=== PATIENT | male | born 1955 | race Two or more races ===

== ENCOUNTER 2018-02-14 10:52 | Inpatient (IN) | payer SELFPAY ==
[~2018-02-14] VITALS: Ht 170.2 cm; Wt 80.3 kg
--- NOTE | 2018-02-14 11:00 | NUR ---
DISTENDED ABDOMEN, SOB, CONFUSION, WEAKNESS, HEADACHE SINCE LAST NIGHT. NAD NOTED. PT AAO X4, RR EVEN AND UNLABORED. VSS. PENDING MD VALVERDE.
[2018-02-14 11:51] LABS: CALCIUM, SERUM 8.9 mg/dL (8.5-10.1); CARBON DIOXIDE 20 mmol/L (21-32); CHLORIDE 101 mmol/L (98-107); CREATININE 1.1 mg/dL (0.6-1.3); EOSINOPHILS % (AUTO) 0.3 % (0.0-6.0); GLUCOSE 228 mg/dL (74-106); HEMATOCRIT 31 % (39-51); HEMOGLOBIN 9.8 g/dL (13.5-17.5); LYMPHOCYTES # (AUTO) 0.7 /CMM (0.8-4.8); LYMPHOCYTES % (AUTO) 15.4 % (20.0-44.0); MEAN CORPUSCULAR HEMOGLOBIN 24 PG (26.0-33.0); MEAN CORPUSCULAR HGB CONC 32 g/dl (31.0-36.0); MEAN CORPUSCULAR VOLUME 76 fL (80-96); MONOCYTES # (AUTO) 0.4 /CMM (0.1-1.30); NEUTROPHILS # (AUTO) 3.5 /CMM (1.8-8.9); NEUTROPHILS % (AUTO) 75.3 % (43.0-81.0); PLATELET COUNT (AUTO) 79 /CMM (150-450); RDW COEFFICIENT OF VARIATION 19.5 (11.5-15.0); RED BLOOD CELL COUNT(AUTO) 4.06 MIL/uL (4.5-6.0); SODIUM SERUM 134 mmol/L (136-145); UREA NITROGEN, BLOOD 19 mg/dL (7-18); WHITE BLOOD COUNT (AUTO) 4.6 K/uL (4.3-11.0)
[2018-02-14 11:55] LABS: INR 1.28 (0.85-1.15)
[2018-02-14 11:57] LABS: ALANINE AMINOTRANSFERASE 38 U/L (12-78); ALBUMIN 3.4 g/dL (3.4-5.0); ALKALINE PHOSPHATASE 113 U/L (46-116); ASPARTATE AMINOTRANSFERASE 32 U/L (15-37); BILIRUBIN,DIRECT 0.5 mg/dL (0.0-0.2); BILIRUBIN,TOTAL 1.7 mg/dL (0.2-1.0); TOTAL PROTEIN, SERUM 8.6 g/dL (6.4-8.2)
[2018-02-14 12:05] LABS: APPEARANCE,URINE Slightly Cloudy (CLEAR); BILIRUBIN,URINE SMALL (NEGATIVE); BLOOD, URINE Negative Ery/uL (NEGATIVE); COLOR,URINE Yellow (YELLOW); KETONES,URINE Negative (NEGATIVE); LEUKOCYTE ESTERASE ,URINE Moderate (NEGATIVE); NITRITE, URINE Negative (NEGATIVE); PROTEIN,URINE Trace mg/dl (NEGATIVE); UGLUCOSE Negative (NEGATIVE)
[2018-02-14 12:10] LABS: BACTERIA,URINE Many /HPF (None Seen); RBC,URINE 0-2 /HPF (0-2); SQUAMOUS EPITHELIAL CELL,UR Moderate /HPF (None Seen)
[2018-02-14 12:12] LABS: LYMPHOCYTES % (MANUAL) 12 % (16-48); MONOCYTES % (MANUAL) 3 % (0-11.0); NEUTROPHILS % (MANUAL) 85 (42-76)
[2018-02-14] MEDS ORDERED: CEFTRIAXONE 1GM BAG (ER ONLY) 50 ML IV ONE ×2 (12:30→12:41)
[2018-02-14] MEDS ORDERED: AZITHROMYCIN 500 MG in IV D5W 250 ML IV ONE (12:30)
[2018-02-14] MEDS ORDERED: VANCOMYCIN 1 GM in IV D5W 250 ML IV ONE (12:30)
--- NOTE | 2018-02-14 12:32 | NUR ---
pt signed consent for paracentesis
[2018-02-14] MEDS ORDERED: LIDOCAINE 1%-EPI 1:100,000 20 ML VIAL ONE (12:36)
--- NOTE | 2018-02-14 12:55 | NUR ---
dr walls at bedside for paracentesis
[2018-02-14] MEDS ORDERED: METF850T2 PO (13:32)
[2018-02-14] MEDS ORDERED: NIFE10CA2 PO (13:32)
[2018-02-14] MEDS ORDERED: VITA1TAB56 PO (13:32)
[2018-02-14] MEDS ORDERED: FURO-144 PO (13:32)
[2018-02-14] MEDS ORDERED: [UNRECOGNIZED DRUG - CODE] PO (13:32)
[2018-02-14] MEDS ORDERED: INSU100V7 SQ (13:32)
[2018-02-14] MEDS ORDERED: CHLO50TA PO (13:32)
--- NOTE | 2018-02-14 13:49 | NUR ---
GOING TO ROOM 110 PER HOUSE SUP
--- NOTE | 2018-02-14 13:54 | NUR ---
REPORT GIVEN TO BERRY DODGE FOR ANGELA
[2018-02-14 14:30] VITALS: BP 137/76
[2018-02-14] MEDS ORDERED: ACETAMINOPHEN 325 MG TABLET PO PRN (14:30)
[2018-02-14] MEDS ORDERED: MAG HYDROX/AL HYDROX/SIMETH 30 ML UDC PO PRN (14:30)
[2018-02-14] MEDS ORDERED: MAGNESIUM HYDROXIDE 30 ML UDC PO PRN (14:30)
[2018-02-14] MEDS ORDERED: Z GUARD REMEDY 2 OZ OINT TP PRN (14:30)
[2018-02-14] MEDS ORDERED: ZOLPIDEM TARTRATE 5 MG TABLET PO PRN (14:30)
[2018-02-14] MEDS ORDERED: ONDANSETRON HCL/PF 4 MG/2 ML VIAL IVP PRN (14:30)
[2018-02-14] MEDS ORDERED: HYDROCODONE/APAP 5/325MG 1 EACH TABLET PO PRN (14:30)
[2018-02-14 16:00] VITALS: BP 126/68
[2018-02-14] MEDS ORDERED: DEXTROSE 50%-WATER 50 ML DISP.SYRIN IV PRN (19:00)
--- NOTE | 2018-02-14 19:38 | NUR ---
MS RN OPENING NOTE RECEIVE PATIENT AWAKE IN BED, A/O X3, STABLE NO FACIAL GRIMACING NOTED FOR PAIN. NO SOB OR DISTRESS NOTED, CALL LIGHT WITHIN REACH. SAFETY MEASURES IMPLEMENTED. WILL CONTINUE TO MONITOR THROUGHOUT SHIFT.
[2018-02-14 20:00] VITALS: BP 122/66
[2018-02-14] MEDS: INSULIN GLARGINE, 100 UNIT/ML CARTRIDGE SQ SCH (21:51)
[2018-02-14] MEDS: BLOOD SUGAR DIAGNOSTIC 1 EACH STRIP IN SCH (21:53)
[2018-02-14] MEDS: INSULIN REGULAR, HUMAN 100 UNIT/ML 3 ML VIAL SQ PRN (21:55)
[2018-02-15] VITALS: BP 144/89
[2018-02-15 04:00] VITALS: BP 140/75
--- NOTE | 2018-02-15 06:23 | NUR ---
MS RN CLOSING NOTES IN BED ASLEEP AND EASILY AWAKEN, NO COMPLAINTS OF PAIN, NO DISTRESS OR SOB AT THIS TIME. NO COMPLAINTS OF CHEST PAIN. NO S/S OF HYPO/HYPERGLYCEMIA. TOLERATING ROOM AIR 98%, AFEBRILE. AT BEDSIDE, NURSING CARE RENDERED. NEEDS ATTENDED, KEPT CLEAN AND DRY AND COMFORTABLE. SAFETY PRECAUTIONS IN PLACE, BED IN LOWEST LOCKED POSITION, X2 SIDE RAILS UP, AND CALL LIGHT WITHIN REACH. WILL ENDORSE TO DAY SHIFT NURSE FOR CONTINUITY OF CARE.
[2018-02-15 06:33] LABS: EOSINOPHILS % (AUTO) 1.7 % (0.0-6.0); HEMATOCRIT 27 % (39-51); HEMOGLOBIN 8.6 g/dL (13.5-17.5); LYMPHOCYTES # (AUTO) 0.4 /CMM (0.8-4.8); LYMPHOCYTES % (AUTO) 15.3 % (20.0-44.0); MEAN CORPUSCULAR HEMOGLOBIN 24 PG (26.0-33.0); MEAN CORPUSCULAR HGB CONC 32 g/dl (31.0-36.0); MEAN CORPUSCULAR VOLUME 76 fL (80-96); MONOCYTES # (AUTO) 0.3 /CMM (0.1-1.30); MONOCYTES % (AUTO) 11.8 % (2.0-12.0); NEUTROPHILS % (AUTO) 71.2 % (43.0-81.0); PLATELET COUNT (AUTO) 55 /CMM (150-450); RDW COEFFICIENT OF VARIATION 19.1 (11.5-15.0); RED BLOOD CELL COUNT(AUTO) 3.52 MIL/uL (4.5-6.0); WHITE BLOOD COUNT (AUTO) 2.8 K/uL (4.3-11.0)
[2018-02-15 07:04] LABS: CALCIUM, SERUM 8.6 mg/dL (8.5-10.1); MAGNESIUM 1.8 mg/dL (1.8-2.4); PHOSPHORUS 3.4 mg/dL (2.5-4.9); POTASSIUM 3.1 mmol/L (3.5-5.1)
--- NOTE | 2018-02-15 07:13 | NUR ---
MS RN NOTES: RECEIVED PT ON BED ASLEEP. NO ACUTE DISTRESS NOTED. NO COMPLAINTS OF PAIN OR DISCOMFORT. AT BEDSIDE DURING THIS TIME. BREATHING EVEN AND UNLABORED WITH NORMAL RESPIRATIONS. IV ON RAC G18 INTACT AND PATENT. KEPT CLEAN, DRY AND COMFORTABLE. SAFETY AND FALL PRECAUTIONS OBSERVED AND MAINTAINED. WILL CONTINUE TO MONITOR PT.
[2018-02-15 08:00] VITALS: BP 123/72
[2018-02-15] MEDS: BLOOD SUGAR DIAGNOSTIC 1 EACH STRIP IN SCH ×4 (08:16→21:55)
[2018-02-15] MEDS: FUROSEMIDE 40 MG/4 ML VIAL IV SCH (08:21)
[2018-02-15] MEDS: VITAMIN B COMP W-C 1 TAB TABLET PO SCH (08:22)
[2018-02-15] MEDS: METFORMIN 850 MG TABLET PO SCH (08:22)
[2018-02-15] MEDS: NIFEdipine (10MG) 10 MG CAPSULE PO SCH (08:22)
[2018-02-15] MEDS: HYDROCHLOROTHIAZIDE 25 MG TABLET PO SCH (08:22)
[2018-02-15] MEDS: INSULIN REGULAR, HUMAN 100 UNIT/ML 3 ML VIAL SQ PRN ×4 (08:23→21:56)
[2018-02-15 08:55] LABS: EOSINOPHILS % (MANUAL) 1 % (0-4); LYMPHOCYTES % (MANUAL) 14 % (16-48); MONOCYTES % (MANUAL) 4 % (0-11.0); NEUTROPHILS % (MANUAL) 81 (42-76)
[2018-02-15] MEDS ORDERED: POTASSIUM CHLORIDE 20 MEQ TAB.PRT.SR PO ONE (12:00)
[2018-02-15] MEDS: CEFTRIAXONE 1 G in IV NS 0.9% 50 ML IV SCH (13:47)
--- NOTE | 2018-02-15 18:58 | NUR ---
MS RN NOTES: PATIENT ON BED ALERT AND AWAKE. FAMILY AT BEDSIDE DURING THIS TIME. NO ACUTE DISTRESS NOTED. NO COMPLAINTS OF PAIN OR DISCOMFORT. BREATHING EVEN AND UNLABORED WITH NORMAL RESPIRATIONS. IV ON RIGHT AC INTACT AND PATENT, FLUSHING WELL. NO SIGNS OF INFILTRATION NOTED. ALL DUE MEDS GIVEN ORDERED AND WELL TOLERATED. KEPT PT CLEAN, DRY AND COMFORTABLE. SAFETY AND FALL PRECAUTIONS OBSERVED AND MAINTAINED. WILL ENDORSE TO PHP ARCHITECT FOR ANGELA.
--- NOTE | 2018-02-15 19:40 | NUR ---
MS RN NOTE RECEIVED PATIENT FROM DAY SHIFT, PATIENT IS ALERT AND ORIENTEDX3, WOLOF SPEAKER ONLY, FAMILY AT BEDSIDE. NO S/S OF RESPIRATORY DISTRESS AND COMPLAINS OF PAIN RLQ, DISTENDED ABD NOTED DUE TO ASCITES. IV ON RIGHT AC IS PATENT AND INTACT, SL ONLY. SRX2, BED IN LOW POSITION, CALL LIGHT WITHIN REACH, WILL CONTINUE TO MONITOR PATIENT.
[2018-02-15 20:00] VITALS: BP 140/52
[2018-02-15] MEDS: INSULIN GLARGINE, 100 UNIT/ML CARTRIDGE SQ SCH (21:56)
[2018-02-16 06:32] LABS: BASOPHILS % (AUTO) 1.1 % (0.0-2.0); EOSINOPHILS % (AUTO) 0.7 % (0.0-6.0); HEMATOCRIT 29 % (39-51); HEMOGLOBIN 9.2 g/dL (13.5-17.5); LYMPHOCYTES # (AUTO) 0.8 /CMM (0.8-4.8); LYMPHOCYTES % (AUTO) 21.4 % (20.0-44.0); MEAN CORPUSCULAR HEMOGLOBIN 24 PG (26.0-33.0); MEAN CORPUSCULAR HGB CONC 32 g/dl (31.0-36.0); MEAN CORPUSCULAR VOLUME 76 fL (80-96); MONOCYTES # (AUTO) 0.3 /CMM (0.1-1.30); MONOCYTES % (AUTO) 8.7 % (2.0-12.0); NEUTROPHILS # (AUTO) 2.5 /CMM (1.8-8.9); NEUTROPHILS % (AUTO) 68.1 % (43.0-81.0); PLATELET COUNT (AUTO) 69 /CMM (150-450); RDW COEFFICIENT OF VARIATION 20.4 (11.5-15.0); RED BLOOD CELL COUNT(AUTO) 3.82 MIL/uL (4.5-6.0); WHITE BLOOD COUNT (AUTO) 3.7 K/uL (4.3-11.0)
--- NOTE | 2018-02-16 06:42 | NUR ---
MS RN NOTE PATIENT IS SLEEPING IN BED COMFORTABLY, NO ACUTE DISTRESS NOTED THROUGHOUT THE SHIFT. IV IS PATENT AND INTACT, SL ONLY. NO PAIN REPORTED ON HIS ABDOMEN. WILL ENDORSE TO DAY SHIFT NURSE FOR ANGELA.
[2018-02-16 06:51] LABS: CALCIUM, SERUM 8.7 mg/dL (8.5-10.1); POTASSIUM 3.1 mmol/L (3.5-5.1)
[2018-02-16] MEDS: BLOOD SUGAR DIAGNOSTIC 1 EACH STRIP IN SCH ×4 (07:59→22:31)
[2018-02-16 08:00] VITALS: BP 125/73
[2018-02-16] MEDS: ASPIRIN 81 MG TAB.CHEW PO SCH (08:46)
[2018-02-16] MEDS: METFORMIN 850 MG TABLET PO SCH (08:46)
[2018-02-16] MEDS: VITAMIN B COMP W-C 1 TAB TABLET PO SCH (08:48)
[2018-02-16] MEDS: HYDROCHLOROTHIAZIDE 25 MG TABLET PO SCH (08:48)
[2018-02-16] MEDS: NIFEdipine (10MG) 10 MG CAPSULE PO SCH (08:49)
--- NOTE | 2018-02-16 09:26 | NUR ---
MS RN NOTE: CALLED AND PAGED DR. SALAS ON THE [employer] EXCHANGE NUMBER TO REPORT REGARDING THE POTASSIUM 3.1 AND THAT PATIENT HAS A LASIX 40MG IV DAILY. AWAITING FOR MD'S RESPONSE.
[2018-02-16 09:44] LABS: EOSINOPHILS % (MANUAL) 2 % (0-4); LYMPHOCYTES % (MANUAL) 24 % (16-48); MONOCYTES % (MANUAL) 13 % (0-11.0); NEUTROPHILS % (MANUAL) 61 (42-76)
--- NOTE | 2018-02-16 10:05 | NUR ---
MS RN NOTE: RECEIVED AN ORDER FROM DR. SALAS AND PER , GIVE POTASSIUM 40 MEQ PO X1 AND OK TO ADMINISTER LASIX ORDERED.
[2018-02-16] MEDS: FUROSEMIDE 40 MG/4 ML VIAL IV SCH (10:09)
[2018-02-16] MEDS ORDERED: POTASSIUM CHLORIDE 20 MEQ TAB.PRT.SR PO ONE (10:30)
[2018-02-16] MEDS: LACTULOSE 10 G/15 ML UDC (PYXIS) PO SCH ×3 (11:12→22:20)
[2018-02-16 12:00] VITALS: BP 104/67
[2018-02-16] MEDS: INSULIN REGULAR, HUMAN 100 UNIT/ML 3 ML VIAL SQ PRN ×3 (12:03→22:22)
[2018-02-16] MEDS: CEFTRIAXONE 1 G in IV NS 0.9% 50 ML IV SCH (13:26)
--- NOTE | 2018-02-16 13:40 | NUR ---
U/S GUIDED PARACENTESIS TO BE DONE MON., 02/18/18 PER NURSE MARTINEZ AFTER SPEAKING WITH ORDERING PHYSICIAN DR. SALAS.
[2018-02-16 16:00] VITALS: BP 102/59
--- NOTE | 2018-02-16 16:27 | NUR ---
MS RN NOTE: THE PATIENT'S , MINH MERRILL WAS PRESENT AT THE BEDSIDE AND SHE WAS INFORMED ABOUT THE ULTRASOUND GUIDED PARACENTESIS TEST FOR THE PATIENT SCHEDULED ON SUNDAY (02/18/18). THE SIGNED THE INFORMED CONSENT AND VERIFIED WITH HER THAT SHE WAS CONSENTING FOR THE PATIENT TO HAVE THE TEST DONE BY SUNDAY. THE HAS NO QUESTIONS ABOUT THE PROCEDURE. INFORMED CONSENT FILED IN THE PATIENT'S CHART.
--- NOTE | 2018-02-16 19:30 | NUR ---
MS/RN RECEIVE PATIENT AWAKE, ALERT, ORIENTED, COMFORTABLE, NO C/O PAIN AT THIS TIME, NO DISTRESS NOTED, CALL LIGHT IN REACH. WILL MONITOR.
[2018-02-16 21:00] VITALS: BP 136/73
[2018-02-16] MEDS: INSULIN GLARGINE, 100 UNIT/ML CARTRIDGE SQ SCH (22:21)
[2018-02-17 05:16] VITALS: BP 102/58
[2018-02-17 06:07] LABS: BASOPHILS % (AUTO) 0.1 % (0.0-2.0); EOSINOPHILS % (AUTO) 0.5 % (0.0-6.0); HEMATOCRIT 29 % (39-51); HEMOGLOBIN 9.1 g/dL (13.5-17.5); LYMPHOCYTES # (AUTO) 0.6 /CMM (0.8-4.8); LYMPHOCYTES % (AUTO) 15.3 % (20.0-44.0); MEAN CORPUSCULAR HEMOGLOBIN 24 PG (26.0-33.0); MEAN CORPUSCULAR HGB CONC 32 g/dl (31.0-36.0); MEAN CORPUSCULAR VOLUME 76 fL (80-96); MONOCYTES # (AUTO) 0.4 /CMM (0.1-1.30); MONOCYTES % (AUTO) 10.5 % (2.0-12.0); NEUTROPHILS # (AUTO) 2.8 /CMM (1.8-8.9); NEUTROPHILS % (AUTO) 73.6 % (43.0-81.0); PLATELET COUNT (AUTO) 73 /CMM (150-450); RDW COEFFICIENT OF VARIATION 19.7 (11.5-15.0); RED BLOOD CELL COUNT(AUTO) 3.76 MIL/uL (4.5-6.0); WHITE BLOOD COUNT (AUTO) 3.8 K/uL (4.3-11.0)
[2018-02-17] MEDS: BLOOD SUGAR DIAGNOSTIC 1 EACH STRIP IN SCH ×4 (06:26→22:01)
[2018-02-17] MEDS: LACTULOSE 10 G/15 ML UDC (PYXIS) PO SCH ×4 (06:26→23:33)
[2018-02-17 06:30] LABS: CALCIUM, SERUM 8.6 mg/dL (8.5-10.1); POTASSIUM 2.9 mmol/L (3.5-5.1)
--- NOTE | 2018-02-17 06:45 | NUR ---
MS/RN PATIENT IS AWAKE, ALERT, ORIENTED, COMFORTABLE, NO C/O PAIN, NO DISTRESS NOTED, ALL NEEDS ATTENDED AT THIS TIME. WILL CONTINUE TO MONITOR.
[2018-02-17 08:00] VITALS: BP 114/61
[2018-02-17] MEDS: HYDROCHLOROTHIAZIDE 25 MG TABLET PO SCH (08:59)
[2018-02-17] MEDS: METFORMIN 850 MG TABLET PO SCH (08:59)
[2018-02-17] MEDS: ASPIRIN 81 MG TAB.CHEW PO SCH (08:59)
[2018-02-17] MEDS: VITAMIN B COMP W-C 1 TAB TABLET PO SCH (08:59)
--- NOTE | 2018-02-17 08:59 | NUR ---
MS RN NOTES PATIENT IN BED, AWAKE. A/O X3, GREEK SPEAKING, DAUGHTER AT THE BEDSIDE. BREATHING ON ROOM AIR WITH NO SOB. IVC IN RIGHT AC PATENT AND INTACT, FLUSHES WELL. ABDOMEN APPEARS ROUND AND TENDER, DENIES PAIN. CALL LIGHT WITHIN REACH, WILL CONT MONITOR.
[2018-02-17] MEDS: FUROSEMIDE 40 MG/4 ML VIAL IV SCH (09:00)
[2018-02-17] MEDS: NIFEdipine (10MG) 10 MG CAPSULE PO SCH (09:00)
[2018-02-17 10:13] LABS: EOSINOPHILS % (MANUAL) 1 % (0-4); LYMPHOCYTES % (MANUAL) 15 % (16-48); MONOCYTES % (MANUAL) 5 % (0-11.0); NEUTROPHILS % (MANUAL) 79 (42-76)
[2018-02-17 10:55] VITALS: BP 114/61
[2018-02-17] MEDS: POTASSIUM CHLORIDE 20 MEQ TAB.PRT.SR PO SCH ×3 (11:29→12:44)
[2018-02-17] MEDS: INSULIN REGULAR, HUMAN 100 UNIT/ML 3 ML VIAL SQ PRN ×3 (11:53→22:10)
[2018-02-17] MEDS: CEFTRIAXONE 1 G in IV NS 0.9% 50 ML IV SCH (12:44)
[2018-02-17] MEDS ORDERED: POTASSIUM CHLORIDE 20 MEQ TAB.PRT.SR PO ONE (15:30)
[2018-02-17 16:00] VITALS: BP 118/67
--- NOTE | 2018-02-17 18:28 | NUR ---
MS RN CLOSING NOTES PATIENT IS COOPERATIVE, VS REMAINS STABLE, AFEBRILE DURING THE SHIFT. POTASSIUM SUPPLEMENTED TODAY ORDERED. ABDOMEN STILL ROUND AND ENLARGED DUE TO ASCITES. AMMONIA LEVEL STILL ELEVATED BUT IMPROVING FROM PREVIOUS LEVEL, MD IS AWARE. DENIES PAIN, CALL LIGHT WITHIN REACH. WILL ENDORSE TO ONCOMING RN.
[2018-02-17] MEDS: RIFAXIMIN 550 MG TABLET PO SCH (19:05)
[2018-02-17] MEDS: SPIRONOLACTONE 25 MG TABLET PO SCH (19:05)
[2018-02-17 20:00] VITALS: BP 113/71
--- NOTE | 2018-02-17 20:05 | NUR ---
CHANELL RN NOTES RECEIVED REPORT FROM AM NURSE. PATIENT IN BED, AWAKE. A/O X3, SWISS SPEAKING, FAMILY AT THE BEDSIDE. BREATHING ON ROOM AIR WITH SPO2 OF 100%. NO SOB , NO DISCOMFORT NOTED AT THIS TIME. IV LINE IN RIGHT AC PATENT AND INTACT, FLUSHES WELL. ABDOMEN APPEARS ROUND, DISTENDED AND TENDER, COMPLAINS OF PAIN 6/10 BUT DIDN'T WANT TO TAKE PAIN MEDICATION.V/S WNL. ALL SAFETY PRECAUTIONS ARE IMPLEMENTED, BED IN LOW, LOCKED POSITION, CALL LIGHT WITHIN REACH. WILL CONT. TO MONITOR.
[2018-02-17] MEDS: PROPRANOLOL HCL 40 MG TABLET PO SCH (20:32)
[2018-02-17] MEDS: INSULIN GLARGINE, 100 UNIT/ML CARTRIDGE SQ SCH (22:09)
[2018-02-18 04:00] VITALS: BP 113/72
[2018-02-18] MEDS: LACTULOSE 10 G/15 ML UDC (PYXIS) PO SCH ×2 (05:36→11:37)
--- NOTE | 2018-02-18 06:25 | NUR ---
CHANELL RN CLOSING NOTES PATIENT IS COOPERATIVE,IN BED SLEEPING, VS REMAINS STABLE, AFEBRILE DURING THE SHIFT.ABDOMEN STILL ROUND AND ENLARGED DUE TO ASCITES. DENIES PAIN, CALL LIGHT WITHIN REACH. WILL ENDORSE TO AM RN FOR FIXED ROUTE OPERATOR.
[2018-02-18 06:40] LABS: CALCIUM, SERUM 8.3 mg/dL (8.5-10.1); CREATININE 1.1 mg/dL (0.6-1.3)
[2018-02-18] MEDS: BLOOD SUGAR DIAGNOSTIC 1 EACH STRIP IN SCH ×2 (07:30→11:59)
--- NOTE | 2018-02-18 07:45 | NUR ---
RN NOTES PATIENT IN BED, A/OX3, MAORI SPEAKING, AT THE BEDSIDE. BREATHING IN ROOM AIR WITH NO SOB. PIV IN RIGHT AC PATENT AND INTACT, FLUSHES WELL. DENIES PAIN AT THIS TIME. CALL LIGHT WITHIN REACH, WILL CONTINUE TO MONITOR.
[2018-02-18 08:00] VITALS: BP 107/59
[2018-02-18] MEDS: ASPIRIN 81 MG TAB.CHEW PO SCH (09:00)
[2018-02-18] MEDS ORDERED: FUROSEMIDE 80 MG TABLET PO SCH (09:00)
[2018-02-18] MEDS: PROPRANOLOL HCL 40 MG TABLET PO SCH (09:00)
[2018-02-18] MEDS: NIFEdipine (10MG) 10 MG CAPSULE PO SCH (09:00)
[2018-02-18] MEDS: HYDROCHLOROTHIAZIDE 25 MG TABLET PO SCH (09:00)
[2018-02-18] MEDS: SPIRONOLACTONE 25 MG TABLET PO SCH (09:15)
[2018-02-18] MEDS: VITAMIN B COMP W-C 1 TAB TABLET PO SCH (09:16)
[2018-02-18] MEDS: METFORMIN 850 MG TABLET PO SCH (09:17)
[2018-02-18] MEDS: RIFAXIMIN 550 MG TABLET PO SCH (09:18)
[2018-02-18] MEDS: POTASSIUM CHLORIDE 20 MEQ TAB.PRT.SR PO SCH ×5 (11:00→14:36)
[2018-02-18] MEDS ORDERED: FURO80TA3 PO (11:23)
[2018-02-18] MEDS ORDERED: SULF1TAB48 PO (11:23)
[2018-02-18] MEDS ORDERED: SPIR25TA PO (11:23)
[2018-02-18] MEDS: INSULIN REGULAR, HUMAN 100 UNIT/ML 3 ML VIAL SQ PRN (11:59)
--- NOTE | 2018-02-18 12:16 | NUR ---
RN NOTES S/P PARACENTESIS WITH 1325ML OUTPUT. PATIENT TOLERATED PROCEDURE WELL. NO DISTRESS NOTED. PER DR. STEPHEN, NO NEED TO SEND FLUIDS TO LABS.
[2018-02-18] MEDS: CEFTRIAXONE 1 G in IV NS 0.9% 50 ML IV SCH (13:20)
--- NOTE | 2018-02-18 13:22 | NUR ---
RN NOTES INFORMED PHARMACY, UNABLE TO REMOVE 2 DOSES OF POTASSIUM IN OMNICELL BECAUSE TIME PASSED, PHARMACIST ADJUSTED DOSE TIME. WAS NOT ABLE TO GIVE POTASSIUM EARLIER DUE TO PARACENTESIS PROCEDURE.
[2018-02-18 16:00] VITALS: BP 101/57
--- NOTE | 2018-02-18 16:58 | NUR ---
RN NOTES PATIENT A/OX3, KYRGY[place] SPEAKING, GRANDDAUGHTER AT BEDSIDE, DISCHARGE INSTRUCTIONS PROVIDED TO , PATIENT, AND GRANDDAUGHTER, AND EVERYONE VERBALIZED UNDERSTANDING. PRESCRIPTION GIVEN. SKIN ASSESSMENT COMPLETED, SKIN DRY AND INTACT, PIV ON KARLEE REMOVED, APPLIED PRESSURE AND COVERED WITH GAUZE AND TAPE. BELONGINGS RECONCILED AND COMPLETE. NEEDS ATTENDED, PATIENT HAS HIS OWN WHEELCHAIR BROUGHT FROM HOME. FAMILY WILL TAKE THE PATIENT HOME.
== END 2018-02-18 17:30 | disposition home or self-care (01) | DRG 433 ==
LOC: ER 10:54 → MEDSG1 13:56
PROVIDERS: ADMIT Family Medicine; ATTEND Family Medicine
PROC: 0W9G3ZZ Drainage of Peritoneal Cavity, Percutaneous Approach (ICD-10-PCS; principal; 2018-02-14)
PROC: 0W9G3ZZ Drainage of Peritoneal Cavity, Percutaneous Approach (ICD-10-PCS; 2018-02-18)
DX: K70.31 Alcoholic cirrhosis of liver with ascites (principal); E87.1 Hypo-osmolality and hyponatremia; N39.0 Urinary tract infection, site not specified; E87.2 Acidosis; K76.6 Portal hypertension; E87.70 Fluid overload, unspecified; D63.8 Anemia in other chronic diseases classified elsewhere; Z87.891 Personal history of nicotine dependence; E87.6 Hypokalemia; E11.65 Type 2 diabetes mellitus with hyperglycemia; B96.20 Unspecified Escherichia coli [E. coli] as the cause of diseases classified elsewhere; I10 Essential (primary) hypertension; R79.89 Other specified abnormal findings of blood chemistry
CPT/HCPCS: 36415; 76942-TC; 80048-TC; 80061-TC; 80076-TC; 81000-TC; 82140-TC; 82962-TC; 83605-TC; 83735-TC; 84100-TC; 85025-TC; 85730-TC; 87040-TC; 87070-TC; 87081-TC; 87086-TC; 87186-TC; 89051-TC; A4216; A4606; A6402; J0456; J0696; J1815; J1940; J3370; J3490; J7050; J7060; Z7610